=== PATIENT | male | born 1985 | race African-American/Black ===

== ENCOUNTER 2025-02-15 19:54 | Inpatient (IN) | payer OTHER ==
[2025-02-15 21:11] LABS: ABSOLUTE IMMATURE GRANULOCYTES 0.02 x10^3/uL (0.0-0.031); BASOPHILS # 0.07 x10^3/uL (0.01-0.08); EOSINOPHIL % 2.5 % (0.8-7.0); EOSINOPHILS # 0.21 x10^3/uL (0.04-0.54); MCHC 32.1 g/dl (32.3-36.5); MEAN CELL VOLUME 90.6 fl (79.0-92.2); MEAN PLT VOLUME 9.2 fl (9.4-12.4); MONOCYTE # 0.67 x10^3/uL (0.30-0.82); MONOCYTE % 8.1 % (5.3-12.2); RDW 13.2 % (12.1-15.9)
[2025-02-15 21:34] LABS: CO2 28.0 mmol/L (21-32); GLUCOSE,RANDOM 102.0 mg/dL (74-106)
[2025-02-15 21:37] LABS: SGOT/AST 46.0 U/L (15-37); SGPT/ALT 24.0 U/L (13-61)
[2025-02-15 21:38] LABS: CREATININE 1.1 mg/dL (0.55-1.3)
[2025-02-15 21:39] LABS: TOT PROT 7.7 g/dl (6.4-8.2)
[2025-02-15 21:40] LABS: ALK PHOS 117.0 U/L (45-117)
[2025-02-15 21:48] LABS: ERYTHROCYTE SEDIMENTATION RATE 16 mm/hr (0-10)
[2025-02-15 22:25] LABS: HIV INTERPRETATION NEGATIVE (NEGATIVE)
[2025-02-15 22:31] LABS: HCV DIAGNOSTIC IN-HOUSE W/RFLX REACTIVE (NONREACTIVE)
[2025-02-16] MEDS: VANCOMYCIN PREMIX 1.75 GM 1,750 MG/350 ML PIGGYBACK IVPB ONE ×2 (01:07→09:11)
[2025-02-16] MEDS ORDERED: morphine CARPU-JECT 2 MG/1 ML DISP.SYRIN IVPUSH PRN (01:29)
[2025-02-16] MEDS ORDERED: IBUPROFEN 600 MG TABLET (FP) PO PRN (01:29)
[2025-02-16] MEDS ORDERED: CLINDAMYCIN 600MG PREMIX IVPB 600 MG/50 ML BAG IVPB ONE (01:43)
[2025-02-16] MEDS: CLINDAMYCIN 600MG PREMIX IVPB 600 MG/50 ML BAG IVPB ONE (01:45)
[2025-02-16] MEDS ORDERED: VANCOMYCIN 1,000 MG in DEXTROSE 5%-WATER - 250 ML IVPB SCH (01:45)
[2025-02-16] MEDS: SODIUM CHLORIDE 1,000 ML IV SCH (01:50)
[2025-02-16] MEDS ORDERED: AMPICILLIN NA/SULBACTAM NA 3 GM/100 ML BAG IVPB ONE (02:45)
[2025-02-16] MEDS: AMPICILLIN NA/SULBACTAM NA 3 GM in SODIUM CHLORIDE 100 ML IVPB SCH (02:48)
[2025-02-16] MEDS ORDERED: BUPRENORPHINE/NALOXONE 2 MG/0.5 MG FILM PACKET ONE (06:19)
[2025-02-16] MEDS: BUPRENORPHINE/NALOXONE 4 MG/1 MG FILM PACKET SL SCH (06:21)
[2025-02-16 10:14] VITALS: BMI 33.3
[2025-02-16] MEDS: ENOXAPARIN NA (PORCINE) 40 MG/0.4 ML DISP.SYRIN SQ SCH (10:20)
[2025-02-16] MEDS: SULFAMETHOXAZOLE/TRIMETHOPRIM 800MG/160MG D.S. TABLET PO SCH (10:21)
[2025-02-16] MEDS: NICOTINE 21 MG/24 HOURS TOPICAL PATCH TD SCH (10:21)
[2025-02-16] MEDS: COLLAGENASE CLOSTRIDIUM HIST. 30 GRAMS TUBE TP SCH (14:23)
[2025-02-16] MEDS ORDERED: AMPICILLIN NA/SULBACTAM NA 3 GM VIAL ONE (21:29)
[2025-02-16] MEDS: DOXYCYCLINE INJECTION 100 MG in DEXTROSE 5%-WATER 100 ML IVPB SCH (22:41)
[2025-02-17] MEDS ORDERED: IBUPROFEN 600 MG TABLET (FP) PO PRN (07:56)
[2025-02-17 09:28] LABS: INR 1.09 (0.83-1.09); PROTHROMBIN TIME (PATIENT) 12.0 SEC (9.7-13.0)
[2025-02-17 09:30] LABS: ABSOLUTE IMMATURE GRANULOCYTES 0.01 x10^3/uL (0.0-0.031); BASOPHILS # 0.06 x10^3/uL (0.01-0.08); EOSINOPHIL % 5.0 % (0.8-7.0); EOSINOPHILS # 0.29 x10^3/uL (0.04-0.54); MCHC 32.0 g/dl (32.3-36.5); MEAN CELL VOLUME 91.4 fl (79.0-92.2); MEAN PLT VOLUME 9.5 fl (9.4-12.4); MONOCYTE # 0.47 x10^3/uL (0.30-0.82); MONOCYTE % 8.1 % (5.3-12.2); RDW 13.1 % (12.1-15.9)
[2025-02-17 10:20] LABS: CO2 27.0 mmol/L (21-32); GLUCOSE,RANDOM 106.0 mg/dL (74-106)
[2025-02-17 10:23] LABS: CREATININE 0.9 mg/dL (0.55-1.3); SGOT/AST 22.0 U/L (15-37); SGPT/ALT 20.0 U/L (13-61)
[2025-02-17 10:24] LABS: TOT PROT 6.7 g/dl (6.4-8.2)
[2025-02-17 10:26] LABS: ALK PHOS 95.0 U/L (45-117)
[2025-02-18] MEDS ORDERED: AMPICILLIN NA/SULBACTAM NA 3 GM VIAL ONE (08:56)
[2025-02-18 09:01] LABS: ABSOLUTE IMMATURE GRANULOCYTES 0.00 x10^3/uL (0.0-0.031); BASOPHILS # 0.08 x10^3/uL (0.01-0.08); EOSINOPHIL % 5.0 % (0.8-7.0); EOSINOPHILS # 0.32 x10^3/uL (0.04-0.54); MCHC 31.8 g/dl (32.3-36.5); MEAN CELL VOLUME 90.0 fl (79.0-92.2); MEAN PLT VOLUME 9.5 fl (9.4-12.4); MONOCYTE # 0.57 x10^3/uL (0.30-0.82); MONOCYTE % 8.8 % (5.3-12.2); RDW 13.2 % (12.1-15.9)
[2025-02-18 09:53] LABS: CO2 28.0 mmol/L (21-32); GLUCOSE,RANDOM 89.0 mg/dL (74-106)
[2025-02-18 09:55] LABS: CREATININE 0.9 mg/dL (0.55-1.3)
[2025-02-19 06:38] VITALS: BP 121/76; PULSE 69; RESP 18; TEMP 97.3
== END 2025-02-19 10:32 | disposition home or self-care (01) | DRG 721 ==
LOC: JER 19:54 → JERBED 23:46 → INTOOBSV 23:46 → J5S 02-16 06:40 → OBSVTOIN 02-17 15:41
PROVIDERS: ADMIT Hospitalist
DX: T81.49XA Infection following a procedure, other surgical site, initial encounter (principal); L97.919 Non-pressure chronic ulcer of unspecified part of right lower leg with unspecified severity; L76.82 Other postprocedural complications of skin and subcutaneous tissue; F11.10 Opioid abuse, uncomplicated; L03.115 Cellulitis of right lower limb; F17.210 Nicotine dependence, cigarettes, uncomplicated; Y83.8 Other surgical procedures as the cause of abnormal reaction of the patient, or of later complication, without mention of misadventure at the time of the procedure
CPT/HCPCS: 36415; 73610-TC-RT-FY; 73630-TC-RT-FY; 73718-TC-RT; 80048; 80053; 83036; 85025; 85027; 85610; 85651; 86140; 86803; 87040; 87070; 87205; 87389; 87522; 90832-95; 99285-25; G0378; J3373